=== PATIENT | female | born 1985 | race African-American/Black ===

== ENCOUNTER 2016-12-16 19:36 | Emergency (ER) | payer SELFPAY ==
[~2016-12-16] VITALS: Ht 180.3 cm; Wt 78.5 kg
[~2016-12-16 19:36] MED LIST: HYDR-762 PO; ONDA4TAB35 PO
[2016-12-16 19:56] VITALS: Ht 180.3 cm; Wt 78.5 kg
[2016-12-16] MEDS ORDERED: ONDANSETRON (ODT) 4 MG TAB ODT STA (20:28)
[2016-12-16] MEDS ORDERED: HYDR-902 PO (20:29)
[2016-12-16] MEDS ORDERED: HYDROCODONE/APAP (10/325) TAB PO ONE (20:30)
[2016-12-16 20:44] LABS: URINE BLOOD (Dip) POC 2+ (NEGATIVE)
[2016-12-16 21:09] VITALS: BP 119/64; PULSE 81; RESP 20
--- NOTE | 2016-12-16 22:22 | ERD ---
ER Documentation Chief Complaint Date/Time DATE: 12/16/16 TIME: 22:20 Chief Complaint Sickle cell disease. Low back pain. No CP. HPI Patient is a 31-year-old female with sickle cell disease who presents with a sickle cell pain crisis. The patient says that she has had lower back pain for the past 3 hours. She has had no treatment as of yet. She has no chest pain or fevers. These pains are consistent with her previous sickle cell pain. Upon review of old medical records this is the patient's seventh visit to the ER since 2014. Review of the emergency department information exchange shows visits to our emergency department only. She does not currently have a primary doctor. ROS All systems reviewed and are negative except as per history of present illness. Medications Home Meds Active Scripts Hydrocodone/Acetaminophen (Rowley 10-325 Tablet) 1 Each Tablet, 1 TAB PO Q6H Y for PAIN, #7 TAB Prov:JOYCE PEARSON MD 12/16/16 Ondansetron Hcl* (Zofran* ODT) 4 mg -ODT Tab.disper, 4 MG PO Q6 Y for NAUSEA AND /OR VOMITING, #30 TAB Prov:JOYCE PEARSON MD 12/22/15 Hydrocodone Bit-Acetaminophen* (Rowley*) 10-325 Mg Tablet, 1 TAB PO Q6 Y for PAIN , #12 TAB Prov:JOYCE PEARSON MD 12/22/15 Allergies Allergies: Coded Allergies: morphine (Verified Allergy, Unknown, 12/17/15) PMhx/Soc Medical and Surgical Hx: pt denies Surgical Hx History of Surgery: No Anesthesia Reaction: No Hx Neurological Disorder: No Hx Respiratory Disorders: No Hx Cardiac Disorders: No Hx Psychiatric Problems: No Hx Miscellaneous Medical Probl: Yes (SICKLE CELL) Hx Alcohol Use: No Hx Substance Use: No Hx Tobacco Use: No Smoking Status: Unknown if ever smoked FmHx Family History: No diabetes Physical Exam Vitals Vital Signs Date Time Temp Pulse Resp B/P Pulse Ox O2 Delivery O2 Flow Rate FiO2 12/16/16 21:09 81 20 119/64 98 Room Air 12/16/16 19:56 98.8 89 22 135/89 98 Physical Exam Const: Mild distress secondary to pain Head: Atraumatic Eyes: Normal Conjunctiva ENT: Normal External Ears, Nose and Mouth. Neck: Full range of motion..~ No meningismus. Resp: Clear to auscultation bilaterally Cardio: Regular rate and rhythm, no murmurs Abd: Soft, non tender, non distended. Normal bowel sounds Skin: No petechiae or rashes Back: Lower back pain with palpation bilaterally Ext: No cyanosis, or edema Neur: Awake and alert Psych: Normal Mood and Affect Results 24 hrs Laboratory Tests Test 12/16/16 20:46 Bedside Urine Blood 2+ Bedside Urine Glucose (UA) Negative Bedside Urine Ketones (LAB) Negative Bedside Urine Leukocyte Esterase (L Negative Bedside Urine Nitrite (LAB) Negative Bedside Urine Protein (LAB) Negative Bedside Urine pH (LAB) 6.0 Current Medications Medications (Trade) Dose Ordered Sig/Huma Route PRN Reason Start Time Stop Time Status Last Admin Dose Admin Acetaminophen/ Hydrocodone Bitart (Rowley (10/325)) 1 tab ONCE ONCE PO 12/16/16 20:30 12/16/16 20:31 DC 12/16/16 20:39 Ondansetron HCl (Zofran Odt) 4 mg ONCE STAT ODT 12/16/16 20:28 12/16/16 20:29 DC 12/16/16 20:50 Procedures/MDM Patient is a 31-year-old female presents with acute sickle cell pain crisis. She has back pain. Her test is negative. At this point I doubt cauda equina syndrome, epidural abscess, or epidural hematoma. I believe outpatient management is appropriate. She was given Rowley and Zofran. She will be given a short course of Rowley but she will need to follow-up with a pain management doctor as well. I will also give her information for the local clinics. I will give her information for Dr. Billingsley for pain management. She can return sooner for any worsening symptoms. Departure Diagnosis: Primary Impression: Sickle cell pain crisis Condition: Fair Patient Instructions: Sickle Cell Pain Crisis Referrals: [facility] YOU HAVE RECEIVED A MEDICAL SCREENING EXAM AND THE RESULTS INDICATE THAT YOU DO NOT HAVE A CONDITION THAT REQUIRES URGENT TREATMENT IN THE EMERGENCY DEPARTMENT. FURTHER EVALUATION AND TREATMENT OF YOUR CONDITION CAN WAIT UNTIL YOU ARE SEEN IN YOUR DOCTORS OFFICE WITHIN THE NEXT 1-2 DAYS. IT IS YOUR RESPONSIBILITY TO MAKE AN APPOINTMENT FOR FOLOW-UP CARE. IF YOU HAVE A PRIMARY DOCTOR --you should call your primary doctor and schedule an appointment IF YOU DO NOT HAVE A PRIMARY DOCTOR YOU CAN CALL OUR PHYSICIAN REFERRAL HOTLINE AT IF YOU CAN NOT AFFORD TO SEE A PHYSICIAN YOU CAN CHOSE FROM THE FOLLOWING [facility] CLINICS [facility] [address] [facility] [place] [address] [facility] [address] [facility] [address] [facility] [facility] [address] [facility] [facility]. [address] Additional Instructions: SPECIALIST: YOU HAVE A MEDICAL CONDITION WHICH REQUIRES YOU TO SEE A SPECIALIST WITHIN THE NEXT 1-2 DAYS. PLEASE FOLLOW UP WITH YOUR PRIMARY PHYSICIAN FOR REFFERAL.IF YOU DO NOT HAVE A PRIMARY CARE PHYSICIAN AND/OR YOU CAN NOT AFFORD TO SEE A PHYSICIAN THE FOLLOWING RESOURCES HAVE BEEN SUPPLIED TO YOU. IT IS YOUR RESPONSIBILITY TO BE SEEN BY THE SPECIALIST JOYCE PEARSON MD Dec 16, 2016 22:21
== END 2016-12-16 21:09 | disposition home or self-care (01) ==
LOC: E/R 19:36
DX: D57.00 Hb-SS disease with crisis, unspecified (principal)
CPT/HCPCS: 81003; 99283

== ENCOUNTER 2017-11-30 10:34 | Emergency (ER) | END 2017-11-30 13:25 | disposition home or self-care (01) ==